=== PATIENT | female | born 1945 | race Caucasian/White ===

== ENCOUNTER 2017-08-22 15:29 | Emergency (ER) | payer OTHER ==
[~2017-08-22] VITALS: Ht 170.2 cm; Wt 90.7 kg
--- NOTE | ~2017-08-22 | EKG ---
[place] [address] [facility] [place] [address] ELECTROCARDIOGRAM REPORT Name: ABEL KRUGER Edin [facility] [id number] Admission: 08/22/17 Attend Phys: Discharge: 08/22/17 Date of : 49 Report #: [id number] THIS REPORT FOR: //name// [facility] ED Test Date: 2017-08-22 Test Time: 17:23:51 Pat Name: ABEL KRUGER Department: Room: Gender: F Account Service Associate: ROMELIA : 1945 Requested By: Barbara Sanders Order Number: [id number] MD: Kang Molina Measurements Intervals [place] Rate: 81 P: 33 WI: 172 QRS: -17 QRSD: 79 T: 22 QT: 380 QTc: 441 Interpretive Statements Sinus rhythm Atrial premature complex Left ventricular hypertrophy Inferior infarct, old Compared to ECG 09/29/2006 07:18:26 Atrial premature complex(es) now present Electronically Signed On 08-23-2017 8:06:05 CDT by Kang Molina [email or web address] <ELECTRONICALLY SIGNED> By: Kang Molina MD, [facility] 08/23/17 0806 [id number] 22 Kang Molina MD, [facility] /EPI
[2017-08-22 15:49] LABS: URINE BILIRUBIN NEGATIVE (Negative); URINE BLOOD TRACE (Negative); URINE CLARITY CLEAR; URINE COLOR YELLOW; URINE GLUCOSE-RANDOM* 1+ (Negative); URINE KETONES NEGATIVE (Negative); URINE LEUKOCYTES NEGATIVE (Negative); URINE NITRITE NEGATIVE (Negative); URINE PROTEIN (DIPSTICK) NEGATIVE (Negative)
[2017-08-22 16:14] LABS: HEMATOCRIT 41.7 % (37.0-47.0); HEMOGLOBIN 13.9 gm/dL (12.0-15.0); MCH 27.4 pg (26.0-34.0); MCHC 33.4 g/dL (28.0-37.0); PLATELET COUNT 123 thou/uL (150-400); RBC 5.08 mil/uL (4.20-5.00); RDW 14.7 % (10.5-14.5)
[2017-08-22 16:22] LABS: ANION GAP 9 mmol/L (7-16); BUN 9 mg/dL (7-18); CALCIUM 9.6 mg/dL (8.5-10.1); CHLORIDE 102 mmol/L (98-107); CO2 24 mmol/L (21-32); CREATININE 0.7 mg/dL (0.6-1.0); GLUCOSE 175 mg/dL (74-106); POTASSIUM 4.4 mmol/L (3.5-5.1); SODIUM 135 mmol/L (136-145)
[2017-08-22 16:30] LABS: ALBUMIN 3.4 g/dL (3.4-5.0); LIPASE 231 U/L (73-393); SGOT 43 U/L (15-37); SGPT 47 U/L (30-65); TOTAL BILIRUBIN 0.6 mg/dL (<0.1-1.0); TOTAL PROTEIN 7.2 g/dL (6.4-8.2); TROPONIN-I < 0.04 ng/mL (<0.06)
[2017-08-22 16:40] LABS: ABSOLUTE NEUTROPHILS 2.7 thou/uL (1.4-8.2); ANISOCYTOSIS 1+; POLYCHROMASIA OCCASIONAL
[2017-08-22] MEDS ORDERED: ONDANSETRON HCL4 M2 PO (18:42)
[2017-08-22 19:03] VITALS: BP 173/79
[2017-08-23] MEDS ORDERED: EFFEXOR XR150 MG PO (17:13)
[2017-08-23] MEDS ORDERED: METFORMIN HCL500 MG PO (17:14)
[2017-08-23] MEDS ORDERED: OMEPRAZOLE40 MG PO (17:14)
[2017-08-23] MEDS ORDERED: VALIUM5 MG PO (17:15)
[2017-08-23] MEDS ORDERED: ALLEGRA ALLERG180 MG PO (17:15)
[2017-08-23] MEDS ORDERED: ACETAMINOPHEN-1 EAC1 PO (17:15)
[2017-08-23] MEDS ORDERED: MILK OF MA400 MG/5 M PO (17:17)
== END 2017-08-22 19:03 | disposition home or self-care (01) ==
LOC: ER 15:29
PROVIDERS: Physician Assistant
DX: R55 Syncope and collapse (principal); R19.7 Diarrhea, unspecified; R11.2 Nausea with vomiting, unspecified; M79.7 Fibromyalgia; Z98.890 Other specified postprocedural states; Z88.0 Allergy status to penicillin; Z88.1 Allergy status to other antibiotic agents

== ENCOUNTER 2017-08-23 16:55 | Observation (INO) | payer OTHER ==
[~2017-08-23] VITALS: Ht 180.3 cm; Wt 83.9 kg
--- NOTE | ~2017-08-23 | H ---
[facility] [place] [address] [address] HISTORY AND PHYSICAL Name: ABEL KRUGER Room #: 407-P MINH Garcia#: [id number] Admission: 08/23/17 Attend Phys: Tara Mcknight Discharge: 08/24/17 Date of : 49 Report #: [id number] THIS REPORT FOR: //name// CC: Wilman Churchill DATE OF SERVICE: 08/23/2017 CHIEF COMPLAINT: Diarrhea and weakness. HISTORY OF PRESENT ILLNESS: The patient is a 72-year-old female with a recent history of flu-like illness. She has had nausea, diarrhea, weakness and dizziness for the last several days. She was seen in the office 2 days ago and then directed to ER. There workup was unremarkable and she received IV fluids with improvement of her symptoms and was discharged home. However, that night, diarrhea persisted and she was seen in the office again yesterday. Due to persistent symptoms, she was admitted to the hospital. Overnight, she has been placed on clear liquid diet and IV fluids, which have improved her symptoms and she has had no diarrhea she says now for about 24 hours. PAST MEDICAL HISTORY: Fibromyalgia, anxiety and diabetes type 2. PAST SURGICAL HISTORY: Noncontributory. FAMILY HISTORY: Unknown. SOCIAL HISTORY: She is and lives with her . No chronic alcohol or tobacco use. ALLERGIES: PENICILLIN AND TETRACYCLINE. MEDICATIONS: Nathalia, Tylenol No. 3, Effexor, Valium, Prilosec and metformin. REVIEW OF SYSTEMS: She denies headache, chest pain, shortness of breath, abdominal pain, cramps, bleeding, myalgias, arthralgias, syncope or fall. PHYSICAL EXAMINATION: VITAL SIGNS: Temperature 36.4, pulse 86, respirations 18 and blood pressure 156/69. GENERAL: She is awake and alert, in no distress. LUNGS: Clear. HEART: Regular. ABDOMEN: Soft. Normoactive bowel sounds. EXTREMITIES: No edema. LABORATORY DATA: Lab is normal from 2 days ago. Chest x-ray was negative and CT was negative. [facility] [place] [address] HISTORY AND PHYSICAL Name: ABEL KRUGER Room #: 407-P [facility] MRohanRohan#: [id number] Admission: 08/23/17 Attend Phys: Tara Mcknight Discharge: 08/24/17 Date of : 49 Report #: [id number] ASSESSMENT: Acute gastroenteritis. PLAN: I will advance her diet today and if she can tolerate without any more diarrhea, we will anticipate early discharge home. <ELECTRONICALLY SIGNED> By: Mello Powell MD 08/29/17 0948 0946 1003 Mello Powell MD /nt
[~2017-08-23 16:55] MED LIST: ONDANSETRON HCL4 M2 PO
[2017-08-23] MEDS ORDERED: EFFEXOR XR150 MG PO (17:13)
[2017-08-23] MEDS ORDERED: OMEPRAZOLE40 MG PO (17:14)
[2017-08-23] MEDS ORDERED: METFORMIN HCL500 MG PO (17:14)
[2017-08-23] MEDS ORDERED: ALLEGRA ALLERG180 MG PO (17:15)
[2017-08-23] MEDS ORDERED: ACETAMINOPHEN-1 EAC1 PO (17:15)
[2017-08-23] MEDS ORDERED: VALIUM5 MG PO (17:15)
[2017-08-23] MEDS ORDERED: MILK OF MA400 MG/5 M PO (17:17)
[2017-08-23 17:30] VITALS: BP 149/86
[2017-08-23 19:37] LABS: HEMATOCRIT 40.1 % (37.0-47.0); HEMOGLOBIN 13.7 gm/dL (12.0-15.0); MCH 27.9 pg (26.0-34.0); MCHC 34.1 g/dL (28.0-37.0); RBC 4.89 mil/uL (4.20-5.00); RDW 14.5 % (10.5-14.5); WBC 5.9 thou/uL (4.0-11.0)
[2017-08-23 19:51] LABS: CALCIUM 10.1 mg/dL (8.5-10.1); CREATININE 0.7 mg/dL (0.6-1.0); POTASSIUM 3.7 mmol/L (3.5-5.1)
[2017-08-23 20:07] VITALS: BP 155/82
[2017-08-24 04:00] VITALS: BP 154/72
[2017-08-24 07:20] VITALS: BP 156/69
[2017-08-24 13:20] VITALS: BP 156/69
== END 2017-08-24 15:24 | disposition home or self-care (01) ==
LOC: 4N 16:55 → ENTRNSPT 08-24 14:48 → EDTRNSPTSTS 08-24 15:15 → 4N 08-24 15:24
PROVIDERS: Internal Medicine
DX: K52.9 Noninfective gastroenteritis and colitis, unspecified (principal); E11.9 Type 2 diabetes mellitus without complications; F41.9 Anxiety disorder, unspecified
CPT/HCPCS: 10790

== ENCOUNTER 2018-02-15 15:27 | Inpatient (IN) | payer OTHER ==
[~2018-02-15] VITALS: Ht 180.3 cm; Wt 83.0 kg
--- NOTE | ~2018-02-15 | PATH ---
[facility] [place] [address] PATHOLOGY RPT PROCEDURE Name: EUGENIA VANG Room #: 459-P [facility] IN M.R.#: [id number] Admission: 02/15/18 Date of : 49 Discharge: 02/17/18 Report #: [id number] Path Case #: [id number] [facility] Accession Number: [id number] . 01 Material submitted: . PART A: GALLBLADDER PART B: LIVER BIOPSY . 01 Clinical history: . Cholecystitis, cholelithiasis . 02 Diagnosis: A. Gallbladder, cholecystectomy: - Acute cholecystitis with focal ulceration. - Cholelithiasis. - Cholesterol polyp. . B. Liver, needle core biopsy: - Moderate mixed portal/septal chronic inflammation admixed with eosinophils (Grade 2-3/4). - Steatohepatitis, NAFLD Activity Score of 6/8 (70% steatosis = score of 3, 2-4 foci of lobular inflammation - score of 2, mild ballooning present = score of 1). - Extensive bridging fibrosis and nodule formation (Stage 3-4/4). (IUV:michelle; 02/20/2018) QMS/02/20/2018 . 02 Comment: Examination shows marked mixed macro- and microvesicular steatosis. Perisinusoidal fibrosis as well as ballooned hepatocytes and scattered foci of lobular inflammation are present. Features are compatible with steatohepatitis. Satellitosis is not present. Abundant glycogenated nuclei are identified. . In addition, the portal tracts/septae are expanded by a moderate amount of mixed chronic inflammatory infiltrate comprised of lymphocytes, abundant plasma cells as well as a few eosinophils. Ductular proliferation is prominent and identified. Many ducts show acute inflammation, compatible with cholangitis (history of obstruction is noted). Hepatocyte rosettes are not identified.Florid duct lesions or sclerosing bile duct lesions are not present. . Trichrome special stain shows the markedly expanded septae, extensive periportal fibrosis, bridging fibrosis and nodule formation. Reticulin stain is distorted by steatosis and shows the same. The PAS with and without diastase are negative for intracytoplasmic globules in zone 1 and show numerous Kupffer cell macrophages present. Iron stain shows rare 1+ [facility] [address] [place] [address] PATHOLOGY RPT PROCEDURE Name: EUGENIA VANG Room #: 459-P [facility] IN M.R.#: [id number] Admission: 02/15/18 Date of : 49 Discharge: 02/17/18 Report #: [id number] Path Case #: [id number] granular iron in zone 1 hepatocytes. . Steatohepatitis can be seen in several clinical settings including situations of insulin resistance, with alcohol use, as an adverse reaction to several medications, with hyperlipidemias, after gastric or small bowel resections, and as an idiopathic variant. In addition, the extensive portal/septal chronic inflammation with a predominance of plasma cells, as well as the ductular proliferation raises concern for autoimmune etiology, as well as drug-induced liver injury. Please correlate clinically. . Findings of this case are discussed with Dr. Hoa Irvin in the morning of 02/20/2018. . (IUV:michelle; 02/20/2018) . 02 Electronically signed: . Salena Mendiola MD, Pathologist NPI- [id number] . 01 Gross description: . A. Received in formalin labeled "Eugenia Vang, gallbladder" is a previously opened, glistening, koehler, glynn and enlarged gallbladder (9.7 x 5.0 x 3.6 cm upon reconstruction). The wall averages 0.3 cm thick. There are multifocal pseudopolyps versus polyps of the mucosa ranging in size from less than 0.1 cm-0.2 cm in greatest dimension. The wall ranges in thickness from 0.2 cm-0.4 cm. There is a possible subserosal hematoma near the fundus, 1.7 cm, estimated volume 2 cc. Also within the container is a hematoma, 3.0 cm, estimated volume 2 cc. Also within the container are several friable black calculi ranging in size from less than 0.1 cm-0.2 cm and aggregating to 1.2 x 1.0 x 0.4 cm. Present sections are submitted A1-A4, A1 contains margin. . B. Received in formalin labeled "Eugenia Vang, liver biopsy" are 2 green tissue cores each averaging 1.8 cm in length by 0.1 cm in diameter. They are entirely submitted as B1. (OLLIE; 02/19/2018) JBR/JBR . 02 Pathologist provided ICD-10: K80.00, K82.4, K75.81, K74.0, K76.9 . 02 CPT . 577231, 105681, 507733, 630317, 332124, 211405, 945747 Specimen Comment: A courtesy copy of this report has been sent to Specimen Comment: [phone], , . Specimen Comment: Report sent to ,DR FIGUEROA, / DR RODRIGUEZ Performed at: [address] [address] PATHOLOGY RPT PROCEDURE Name: EUGENIA VANG Room #: 459-P [facility] IN .R.#: [id number] Admission: 02/15/18 Date of : 49 Discharge: 02/17/18 Report #: [id number] Path Case #: [id number] [address] [id number] MD Jomar Pena MD Phone: [phone] Performed at: [address] [id number] MD Salena Mendiola MD Phone: [phone]
--- NOTE | ~2018-02-15 | O ---
[facility] [place] [address] [place] [address] OPERATIVE REPORT Name: ABEL KRUGER Room #: 459-P [facility] IN M.R.#: [id number] Admission: 02/15/18 Attend Phys: Tara Mcknight Discharge: 02/17/18 Date of : 49 Report #: [id number] THIS REPORT FOR: //name// CC: Johan Ruiz DATE OF SERVICE: 02/16/2018 PREOPERATIVE DIAGNOSES: Obstructive jaundice, resolving, likely small common duct stone passed. Cholecystitis with dilated distended gallbladder and cholelithiasis. POSTOPERATIVE DIAGNOSES: Obstructive jaundice, resolving, likely small common duct stone passed. Cholecystitis with dilated distended gallbladder and cholelithiasis. Nodular liver consistent with cirrhosis, probably steatohepatitis related. PROCEDURES PERFORMED: Laparoscopic cholecystectomy with cholangiogram. ANESTHESIA: General. SURGEON: Hao Irvin MD. PROCEDURE PERFORMED: 1. Laparoscopic cholecystectomy with cholangiogram. 2. Core 18-gauge needle biopsy of the liver. COMPLICATIONS: None. ESTIMATED BLOOD LOSS: 75 mL. DESCRIPTION OF PROCEDURE: With the patient under general anesthesia, timeout was performed. Abdomen was prepped and draped in sterile fashion. IV antibiotic was administered. Transverse incision was made above the umbilicus about 2 cm. After incising through the skin and subcutaneous tissue, fascia identified. The patient's abdominal wall was quite stretchy. The fascia was opened under visualization vertically. A 0 Vicryl suture was placed on the fascia edges. Veress needle was then placed through the peritoneum. Abdominal cavity was insufflated with CO2 easily. After creating pneumoperitoneum, an 11-mm trocar was placed into the pneumoperitoneum. No harm to underlying tissue. Evaluation of the abdomen showed the liver to be pretty nodular consistent with cirrhosis, probably steatohepatitis related. I did not see any ascites. There is no evidence of portal hypertension. The bowels appeared normal. Gallbladder was markedly distended. The gallbladder was covered by pretty dense adhesions. They were chronic. Two 5-mm trocars were placed in [address] [address] OPERATIVE REPORT Name: ABEL KRUGER Room #: 459-P [facility] IN M.R.#: [id number] Admission: 02/15/18 Attend Phys: Tara Mcknight Discharge: 02/17/18 Date of : 49 Report #: [id number] right lower quadrant and a 5-mm trocar placed in right epigastrium. Gallbladder was distended and decompressed with aspirating about 60 mL out of it. Gallbladder was then lifted cephalad. The adhesions were taken down. The gallbladder re-aspirated 60 mL because it continued to be fairly distended, particularly when we got down to the bottom of the gallbladder when the adhesions were all taken down. Peritoneum was dissected free over the cystic duct and artery. The artery was identified first. It is more superficial in location. The artery was isolated, clipped x 2 proximally and 1 distally and then divided. The cystic duct was then found. Cystic duct was actually pretty normal size. After isolating the cystic duct, a clip was placed in junction of cystic duct to the gallbladder, opening was made in the cystic duct. I milked the cystic duct, did not get anything out of it. The cholangiogram catheter was placed. Fluoroscopic cholangiogram was obtained. The common bile duct filled out well. I did not see any filling defect. The pancreatic duct was also visualized. The cholangiogram catheter was then removed. When I removed the cholangiogram catheter, small sand-like stones were visualized at the opening for the cholangiogram. These were suctioned out. The cystic duct was also irrigated. Two clips were placed on the proximal cystic duct. Cystic duct was then divided. The gallbladder was freed from the liver bed. Towards the upper part of the dissection, the liver bed was entered and this had venous bleeding like a sinusoid. I was not able to control the cautery. Surgicel was placed over this area. Pressure was held over this area. This is where the blood loss occurred at. After pressure, the hemostasis was obtained. A couple of layers of Surgicel was placed over this. Gallbladder was free rest of the way and then placed in a specimen bag. The gallbladder was retrieved through the incision above the umbilicus. I did have to open up the fascia because the gallbladder was quite thickened. Gallbladder was removed and then opened off the field and actually had multiple well-formed stones in there. They were black and up to about 1 cm in size. Gallbladder was then handed off. Liver bed was again checked, hemostasis was obtained. No bleeding from that site. A liver biopsy was then performed of the left lobe, which is located just medial to the liver bed along the edge. An 18-gauge Monopty was able to obtain 2 good cores. Specimen was placed in Telfa, put in formalin and sent to pathology. The hemostasis was obtained with pressure and a Surgicel placed over the liver. Some bleeding from this area was noted, which then stopped with pressure. No bleeding was from either sites. The patient was then taken to recovery room. <ELECTRONICALLY SIGNED> By: Hao Irvin MD 03/01/18 1047 1140 1237 Hao Irvin MD /nicole
--- NOTE | ~2018-02-15 | HC ---
[place] [address] CONSULTATION Name: ABEL KRUGER Room #: 459-P [facility] IN M.R.#: [id number] Admission: 02/15/18 Attend Phys: Tara Mcknight Discharge: 02/17/18 Date of : 49 Report #: [id number] THIS REPORT FOR: //name// CC: Johan Ruiz DATE OF SERVICE: 02/16/2018 REASON FOR CONSULTATION: Abdominal pain, nausea, vomiting, and elevated liver function tests consistent with obstructive jaundice. HISTORY OF PRESENT ILLNESS: The patient is a 72-year-old who had been a prior patient of mine in the office. The patient started on Monday with nausea and vomiting. She also did have pain in the right upper quadrant area. The patient was seen by Dr. Johan Churchill yesterday, admitted, her liver enzymes showed a bilirubin of 4. Ultrasound was reported to me that it did not show any stone. The patient's duct was not remarkable. The patient is admitted for evaluation and treatment. The patient did undergo an MRCP this morning. I looked at the MRCP and then reviewed with Dr. Holland. The gallbladder contains layering small stone debris. Also, the common duct did not have any evidence of a stone in it. We also reviewed a CT scan from August. This contained what looked like stones at the bottom of the gallbladder, which is lying out, which suggests as more of small stones and like debris material. The patient was recommended to have her gallbladder removed. A liver function tests performed today did show that it dropped from 4 to 1.7. PHYSICAL EXAMINATION: She is alert and oriented. She is quite tender in the right upper quadrant. There is no abdominal mass. No ascites. IMPRESSION: The patient is a 72-year-old with abdominal pain, nausea and vomiting. She is complaining of dark urine for a few days. Today, it started to lighten up. Her liver function tests suggest that she passed stone. MRCP does not show any current stone in the duct. She does have a density in the gallbladder, which is layering out, probably small stone or sludge. This is seen on MRCP and also on a prior CT in August. I believe she likely passed a stone through the duct and her obstructive jaundice is resolving, but she still is quite tender in the gallbladder area. Recommend the patient have surgery. Procedure discussed in detail. Risk of bleeding, infection, bile duct injury discussed. The patient will receive preoperative IV antibiotic. The patient wishes to proceed. was present. Her also recognized me and knows me. <ELECTRONICALLY SIGNED> By: Hao Irvin MD 03/01/18 1047 1146 1449 Hao Irvin MD /nt
--- NOTE | ~2018-02-15 | H ---
[facility] [place] [address] HISTORY AND PHYSICAL Name: ABEL KRUGER Room #: 459-P ADM IN M.R.#: [id number] Admission: 02/15/18 Attend Phys: Tara Mcknight Discharge: Date of : 49 Report #: [id number] THIS REPORT FOR: //name// CC: Wilman Littlejohnfer Sara DATE OF SERVICE: 02/15/2018 CHIEF COMPLAINT: Abdominal pain. HISTORY OF PRESENT ILLNESS: The patient is a 72-year-old female who was admitted from home for evaluation of abdominal pain. She has had issues with discomfort and some nausea for several days. She had some outpatient labs, which revealed elevated bilirubin. She had some outside radiology studies suggesting cholecystitis. She is admitted for evaluation. MRCP is revealing a large thickened gallbladder. I have discussed the situation with Dr. Irvin and it appears working diagnosis is acute cholecystitis with surgical plans and laparoscopic cholecystectomy later today. PAST MEDICAL HISTORY: Fibromyalgia. She uses Tylenol No. 3, chronic allergic rhinitis, diabetes type 2. PAST SURGICAL HISTORY: Noncontributory. FAMILY HISTORY: Noncontributory. SOCIAL HISTORY: No alcohol or tobacco use. She is and lives with her . ALLERGIES: PENICILLIN, TETRACYCLINE. MEDICATIONS: Nathalia, Tylenol with Codeine, Valium, venlafaxine. REVIEW OF SYSTEMS: She denies headache, chest pain, shortness of breath, diarrhea, constipation, dysuria, syncope. OBJECTIVE: VITAL SIGNS: Temperature 36.6, pulse 73, respirations 16, blood pressure 170/71, O2 sat 95% on room air. GENERAL: She is awake, alert, in no distress. LUNGS: Clear. HEART: Regular. ABDOMEN: Protuberant, soft, normoactive bowel sounds. No rebound or guarding. EXTREMITIES: No edema. NEUROLOGIC: Cranial nerves and orientation intact. [facility] [address] [place] [address] HISTORY AND PHYSICAL Name: ABEL KRUGER Room #: 459-P [facility] IN [facility]#: [id number] Admission: 02/15/18 Attend Phys: Tara Mcknight Discharge: Date of : 49 Report #: [id number] ASSESSMENT: Acute cholecystitis. PLAN: As mentioned, Dr. Irvin has surgical plans for later today. <ELECTRONICALLY SIGNED> By: Mello Powell MD 02/16/18 1255 1142 1155 Mello Powell MD /nt
[~2018-02-15 15:27] MED LIST changes: +ACETAMINOPHEN-1 EAC1 PO; +ALLEGRA ALLERG180 MG PO; +EFFEXOR XR150 MG PO; +METFORMIN HCL500 MG PO; +MILK OF MA400 MG/5 M PO; +OMEPRAZOLE40 MG PO; +VALIUM5 MG PO
[2018-02-15 17:24] VITALS: BP 142/69
[2018-02-15 19:22] VITALS: BP 167/87
[2018-02-16] VITALS (8 sets, daily range): BP systolic 116–187; BP diastolic 52–97
[2018-02-16 11:02] LABS: HEMOGLOBIN 13.1 gm/dL (12.0-15.0); MCH 28.7 pg (26.0-34.0); MCHC 34.5 g/dL (28.0-37.0); MCV 83.4 fL (80.0-100.0); RBC 4.56 mil/uL (4.20-5.00); RDW 14.3 % (10.5-14.5); WBC 3.5 thou/uL (4.0-11.0)
[2018-02-16 11:16] LABS: ALBUMIN 3.1 g/dL (3.4-5.0); CALCIUM 10.6 mg/dL (8.5-10.1); CREATININE 0.8 mg/dL (0.6-1.0); POTASSIUM 4.4 mmol/L (3.5-5.1); TOTAL BILIRUBIN 1.8 mg/dL (<0.1-1.0)
[2018-02-17 03:30] VITALS: BP 157/81
[2018-02-17 05:11] LABS: ALBUMIN 2.8 g/dL (3.4-5.0); DIRECT BILIRUBIN 0.5 mg/dL (<0.1-0.3); TOTAL BILIRUBIN 1.5 mg/dL (<0.1-1.0); TOTAL PROTEIN 6.7 g/dL (6.4-8.2)
[2018-02-17 07:58] VITALS: BP 175/74
[2018-02-17 12:29] VITALS: BP 175/74
== END 2018-02-17 13:10 | disposition home or self-care (01) | DRG 419 ==
LOC: 4W 15:27
PROVIDERS: Surgery
PROC: BF121ZZ Fluoroscopy of Gallbladder using Low Osmolar Contrast (ICD-10-PCS; principal; 2018-02-16)
PROC: 0FB23ZX Excision of Left Lobe Liver, Percutaneous Approach, Diagnostic (ICD-10-PCS; principal; 2018-02-16)
PROC: 0FT44ZZ Resection of Gallbladder, Percutaneous Endoscopic Approach (ICD-10-PCS; principal; 2018-02-16)
DX: K80.01 Calculus of gallbladder with acute cholecystitis with obstruction (principal); K74.60 Unspecified cirrhosis of liver; E11.9 Type 2 diabetes mellitus without complications; Z88.1 Allergy status to other antibiotic agents; Z88.0 Allergy status to penicillin; Z79.899 Other long term (current) drug therapy
CPT/HCPCS: 10047; 50010; 50101; 50411; 50555; 50558; 51489; 53307; 53310; 53312; 55245; 55317; 56462; 56525; 56526; 56638; 56639; 56970; 62110; 62900; 70005

== ENCOUNTER 2019-05-27 12:07 | Inpatient (IN) | payer OTHER ==
[~2019-05-27] VITALS: Ht 177.8 cm; Wt 79.4 kg
--- NOTE | ~2019-05-27 | HC ---
[facility] [place] [address] CONSULTATION Name: ABEL KRUGER Room #: 453-P [facility] M..#: [id number] Admission: 05/27/19 Attend Phys: Tara Mcknight Discharge: Date of : 49 Report #: [id number] THIS REPORT FOR: //name// CC: Wilman Churchill DATE OF SERVICE: 05/28/2019 HISTORY OF PRESENT ILLNESS: This is a 73-year-old female patient who was seen by me this afternoon and then again this evening. Neurology consultation was requested because the patient noticed that she was not able to express herself as good as she has done before. She said she is feeling somewhat better. There was some question of drooling from the right. She has improved, but not returned back to the baseline. She never had any stroke before. REVIEW OF SYSTEMS: Positive for fibromyalgia, degenerative joint disease, irritable bowel syndrome, neuropathy, chronic fatigue syndrome, restless leg, bursitis, tonsillectomy, chronic pain syndrome, but is negative for any stroke. This was a relevant 14-point review of system. PAST MEDICAL HISTORY: Negative for stroke. FAMILY HISTORY: Negative for early age stroke. SOCIAL HISTORY: She has a pretty supportive family and I talked to them morning as well as this evening. PHYSICAL EXAMINATION: Indicates she is alert, responsive, able to follow simple and complex command. Her speech does look intact. She thinks she has to bring the words out. 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 Neuromuscular examination does indicate weakness on the right side. Position sense looks intact. No cerebellar sign. No carotid bruit. IMAGING STUDIES: Her extensive imagings were reviewed. She does have a stroke on MRI and she has intracranial stenosis. Her blood pressure is somewhat high and we need to keep it somewhat high. LABORATORY DATA: Indicate the blood sugar was high at 260, but coming down to 147. IMPRESSION: 1. Cerebrovascular accident. 2. Intracranial stenosis. 3. High blood sugar. 4. Hypertension, but we need to keep the blood pressure somewhat high. RECOMMENDATIONS: [facility] [address] [place] [address] CONSULTATION Name: ABEL KRUGER Room #: 453-P [facility] Josiane Garcia#: [id number] Admission: 05/27/19 Attend Phys: Tara Mcknight Discharge: Date of : 49 Report #: [id number] 1. Dual antiplatelet therapy with aspirin and Plavix. 2. I discussed with the family that the deficit can fluctuate. 3. I will suggest keeping the blood pressure somewhat high. I will like to keep it around 150 systolic, like it is going and not lower it. 4. This patient should go to rehab, but she refuses that. She has already been evaluated by rehab. 5. Her LDL is only 51, but she does have a lot of other problems and I think some basic collagen vascular workup will be desirable. 6. As an outpatient, she should have 30 days event monitor. I discussed with the patient and the family twice and about 50 minutes of time was spent taking care of this patient and majority counseling and coordinating. By: 1839 0000 Keegan Fu MD /nt
--- NOTE | 2019-05-27 12:12 | NUR ---
PT. TO CT SCAN AT THIS TIME. VS TO BE OBTAINED.
[2019-05-27] MEDS ORDERED: LIPITOR10 MG PO (12:59)
[2019-05-27 13:10] LABS: ABSOLUTE NEUTROPHILS 5.5 thou/uL (1.4-8.2); BASOPHILS 0.8 % (0.0-2.0); EOSINOPHILS 0.3 % (0.0-3.0); HEMATOCRIT 47.2 % (37.0-47.0); HEMOGLOBIN 15.7 gm/dL (12.0-15.0); LYMPHOCYTES 13.2 % (24.0-44.0); MCH 28.5 pg (26.0-34.0); MCHC 33.4 g/dL (28.0-37.0); MCV 85.4 fL (80.0-100.0); MONOCYTES 7.2 % (1.0-8.0); PLATELET COUNT 162 thou/uL (150-400); POLYS 78.5 % (36.0-66.0); RBC 5.52 mil/uL (4.20-5.00); RDW 13.9 % (10.5-14.5); WBC 7.1 thou/uL (4.0-11.0)
[2019-05-27 13:13] LABS: CALCIUM 11.3 mg/dL (8.5-10.1); CREATININE 0.7 mg/dL (0.6-1.0); POTASSIUM 4.2 mmol/L (3.5-5.1)
[2019-05-27 13:19] LABS: ALBUMIN 4.2 g/dL (3.4-5.0); DIRECT BILIRUBIN 0.1 mg/dL (<0.1-0.2); TOTAL BILIRUBIN 0.6 mg/dL (<0.1-1.0); TOTAL PROTEIN 8.9 g/dL (6.4-8.2)
[2019-05-27 13:33] LABS: URINE BILIRUBIN NEGATIVE (Negative); URINE BLOOD TRACE (Negative); URINE CLARITY CLEAR; URINE COLOR YELLOW; URINE GLUCOSE-RANDOM* 2+ (Negative); URINE KETONES NEGATIVE (Negative); URINE LEUKOCYTES-REFLEX NEGATIVE (Negative); URINE NITRITE-REFLEX NEGATIVE (Negative); URINE PROTEIN (DIPSTICK) NEGATIVE (Negative); URINE UROBILINOGEN 0.2 E.U./dl (0.2-1.0)
[2019-05-27 15:16] LABS: APTT 23.7 Seconds (24.5-32.8); PROTIME 10.5 Seconds (9.3-11.4)
--- NOTE | 2019-05-27 17:06 | NUR ---
[place] 4w [place] [phone]. Staff states that they need a few minutes as they just recieved the bedding assignment. THey state will call back.
[2019-05-27 17:33] VITALS: BP 157/78
[2019-05-27 18:13] VITALS: BP 181/101
[2019-05-27] MEDS ORDERED: LISINOPRIL2.5 MG PO (18:32)
--- NOTE | 2019-05-27 19:04 | NUR ---
PATIENT ARRIVED FROM ED VIA STRECHER, ALERT AND ORIENTED. PATIENT ORIENTED TO UNIT AND THE ROOM. DR CABAN NOTIFIED AND REPORT GIVEN TO JAKE Pacheco RN, TO COMPLETE THE ADMISSION.
[2019-05-28 08:40] VITALS: BP 159/96
--- NOTE | 2019-05-28 08:57 | EKG ---
[address] [address] ELECTROCARDIOGRAM REPORT Name: ABEL KRUGER Room #: 453-P [facility] M.R.#: [id number] Admission: 05/27/19 Attend Phys: Tara Mcknight Discharge: Date of : 49 Report #: [id number] THIS REPORT FOR: //name// [facility] ED Test Date: 2019-05-27 Test Time: 14:07:56 Pat Name: ABEL KRUGER Department: Room: [facility] Gender: F Sports Announcer: : 1945 Requested By: Mari Moser Order Number: [id number] MD: Kang Molian Measurements Intervals [place] Rate: 96 P: 47 GA: 185 QRS: -11 QRSD: 87 T: 33 QT: 347 QTc: 439 Interpretive Statements Sinus tachycardia Multiple ventricular premature complexes Inferior infarct, old Compared to ECG 08/22/2017 17:23:51 Ventricular premature complex(es) now present Atrial premature complex(es) no longer present Electronically Signed On 05-28-2019 8:56:52 ORNAMENTAL PLASTER STICKER by Kang Molina [email or web address] <ELECTRONICALLY SIGNED> By: Kang Molina MD, [facility] 05/28/19 0856 1407 1407 Kang Molina MD, [facility] /EPI
[2019-05-28 09:32] LABS: CHOLESTEROL 112 mg/dL (<200); HDL CHOLESTEROL 44 mg/dL (>40); LDL CHOLESTEROL 51 mg/dL (<100); TC:HDL 2.5 Ratio (Not establshd); TRIGLYCERIDE 86 mg/dL (<150); VLDL 17 mg/dL (<40)
--- NOTE | 2019-05-28 10:34 | NUR ---
PT CARE ASSUMED AT 0700. A&Ox4. PT IS GOING FOR AN MRI TODAY. AWAITING RESULTS. PT. STANDS AT THE EDGE OF THE BED WITHOUT DIFFICULTY AND TRANSITIONS TO THE BEDSIDE COMMODE AND RECLINER. IV PATENT, FLUSHES WELL WITH NO REDNESS OR EDEMA. PT. HAD SPEECH THERAPY EVALUATION AND IS NO LONGER NPO. MECHANICAL SOFT. PT. CANNOT TAKE PILLS WILL CONSULT DR. CABAN ABOUT POSSIBLY CRUSHING MEDS. WILL ALSO DISCUSS POSSIBLE SLIDING SCALE DUE TO TWO HIGH BLOOD GLUCOSE READINGS OF 252 MIDNIGHT AND 177 THIS MORNING 0815. HYDRALAZINE PRN ON BOARD IS SYSTOLIC ABOVE 60. ON ROOM AIR. BED IN LOW POSITION, LOCKED WITH BED ALARM ON. SCD'S IN PLACE
--- NOTE | 2019-05-28 11:58 | H ---
[facility] [place] [address] [address] HISTORY AND PHYSICAL Name: ABEL KRUGER Room #: 453-P [facility] M.R.#: [id number] Admission: 05/27/19 Attend Phys: Tara Mcknight Discharge: Date of : 49 Report #: [id number] THIS REPORT FOR: //name// CC: Wilman Churchill CHIEF COMPLAINT: Facial droop and trouble speaking. HISTORY OF PRESENT ILLNESS: The patient is a 73-year-old female admitted through the Emergency Room with new onset of right-sided facial droop with trouble speaking. The story began when she awoke around 2:00 a.m. on the day of admission to go to the bathroom and her noted that she was having trouble finding words. She could not remember her dog's name and/or enunciate. She went back to sleep and then awoke normally in the morning. She had some drooling from the right side of her mouth and some right-sided facial droop. She then presented to the Emergency Room around noon and was admitted with slurred speech. Initial CT of the head was unremarkable, but an MRI today is confirmed a subacute stroke. PAST MEDICAL HISTORY: Hypertension, diabetes type 2, chronic fatigue syndrome, CARUSO, neuropathy, osteoarthritis, fibromyalgia, irritable bowel syndrome. PAST SURGICAL HISTORY: None. FAMILY HISTORY: Noncontributory. SOCIAL HISTORY: No chronic alcohol or tobacco use. ALLERGIES: PENICILLIN and TETRACYCLINE. MEDICATIONS: Effexor XR, omeprazole, Tylenol No. 3, Nathalia, Glucophage, Lipitor. REVIEW OF SYSTEMS: She denies headache, chest pain, visual change, shortness of breath, abdominal pain, nausea, vomiting, diarrhea, constipation, dysuria, syncope. OBJECTIVE: VITAL SIGNS: Temperature 36.7, pulse 98, respirations 18, blood pressure 159/96, O2 sat 90% on room air. GENERAL: She was awake and alert, oriented, in no distress. HEAD AND NECK: She had very faint right-sided facial droop; however, she had slurred speech. LUNGS: Clear. HEART: Regular. ABDOMEN: Soft, normoactive bowel sounds. EXTREMITIES: No edema. NEUROLOGIC: Global strength 5/5 and equal bilaterally throughout. [address] [address] HISTORY AND PHYSICAL Name: SLICKABEL Room #: [facility] M.R.#: [id number] Admission: 05/27/19 Attend Phys: Tara Mcknight Discharge: Date of : 49 Report #: [id number] LABORATORY DATA: Reviewed. IMAGING: MRI of the head reveals a 1.5 cm acute focal infarct of the left westbrook radiata. ASSESSMENT: 1. Acute cerebrovascular accident. 2. Hypertension. 3. Diabetes type 2. 4. Nonalcoholic steatohepatitis. PLAN: She presented well beyond the window for thrombolytics yesterday and at this point, she will just be treated medically. Additional antihypertensive regimen will be ordered along with aspirin therapies, neurologic and rehab evaluations. <ELECTRONICALLY SIGNED> By: Mello Powell MD 05/28/19 1158 1122 1133 Mello Powell MD /nt
--- NOTE | 2019-05-28 14:09 | NUR ---
PT ADMITTED RELATED TO SLURRED SPEECH, BLURRY VISION. CM REVIEWED CHART AND SPOKE WITH CARE TEAM. CM MET WITH PT, SON, AND SPOUSE AT BEDSIDE THIS DAY. PT IS A&O X4. CM ROLE INTRODUCED PT INDICATED SHE LIVES IN A HOUSE WITH HER SPOUSE AND TWO DOGS WITH A RAMP TO ENTER AND NO STEPS THAT SHE NEEDS TO USE INSIDE. 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 PT INDICATED NO DME OR HH HX. PT INDICATED SHE HOPES TO RETURN HOME ONCE MEDICALLY STABLE. PT'S FAMILY INDICATED THAT THEY ARE RECEPTIVE TO ANY RECOMMENDATIONS THAT CARE TEAM MAKE FOR POST ACUTE CARE NEEDS. CM TO FOLLOW INDICATED WITH DC PLANNING.
[2019-05-28 16:12] VITALS: BP 161/71
--- NOTE | 2019-05-28 18:17 | NUR ---
pt care assumed at 1745. A&oX4/ pt. INDEPENDENT. PT AWAITING MRI OF THE ABDOMEN TOMORROW WITH POSSIBLE PENDING DISCHARGE. MIDLINE PATENT WITH NO EDEMA OR REDNESS WITH FLUIDS RUNNING. DRAINS IN PLACE PATENT. FLUSH QS WITH A 10CC FLUSH. VITALS STABLE. BED IN LOW POSITION, LOCKED. CALL LIGHT IN REACH. ANTIBIOTICS IN IV BIN.
[2019-05-28 19:09] VITALS: BP 166/69
[2019-05-29 00:21] VITALS: BP 168/74
--- NOTE | 2019-05-29 00:21 | NUR ---
PT C/O OF NOT BEING ABLE TO SPEAK AND FEELING IF THE RIGHT SIDE OF HER MOUTH IS DROOPING MORE. ALERT AND ORIENTED, SPEECH SLURRED BUT STILL UNDERSTANDABLE.
--- NOTE | 2019-05-29 00:28 | NUR ---
RETURN CALL FROM DR. PRICE REGARDING PATIENT FEELING IF HER DROOP AND SPEECH WAS WORSE. NO NEW ORDERS OBTAINED JUST ADVISED TO CONTINUE TO MONITOR.
--- NOTE | 2019-05-29 04:46 | NUR ---
progress Pt a/o x4 vss, bp elevated 168/66, 5 mg hydralazine given ivp with effect. Pt reports pain to back and both legs d/t fibromyalgia, taking tylenol #3 with effect, took 2 doses this shift. Up with 1 gb and walker ambulating to br attempting to void with little to no success. Bladder distended and full. Bladder scan revealed 435ml's, straight cath with return of 450 ml's. Pt stated she felt much better after. States she is having difficulty swallowing thin liquids, and is afraid shes going to get dehydrated. encouraged her to keep drinking. Advised to drink slowly, and to take small sips and do not use straws.
--- NOTE | 2019-05-29 06:01 | NUR ---
pt still having difficulty urinating contacted prn straight cath order obtained if over 450 ml's.
[2019-05-29 06:42] LABS: TSH 1.335 uIU/mL (0.358-3.740)
[2019-05-29 07:13] VITALS: BP 188/78
--- NOTE | 2019-05-29 09:35 | NUR ---
SPOKE WITH DR CABAN FOR CLARIFICATION OF ORDERS FOR SWALLOW EVALUATION. HE GAVE VERBAL ORDERS FOR VIDEO SWALLOW EVALUATION.
--- NOTE | 2019-05-29 10:30 | 2DMMODE ---
[facility] [address] [place] [address] 2 D/M-MODE ECHOCARDIOGRAM Name: ABEL KRUGER Room #: 453-P ADM IN M.R.#: [id number] Admission: 05/27/19 Attend Phys: Wilman Wilson Discharge: Date of : 49 Report #: [id number] THIS REPORT FOR: //name// APPROVED REPORT Study performed: 05/29/2019 09:15:51 EXAM: Comprehensive 2D, Doppler, and color-flow Echocardiogram Patient Location: Echo lab Room #: [facility] Status: routine BSA: 1.97 HR: 93 bpm BP: 188/78 mmHg Rhythm: NSR Other Information Study Quality: Good Indications CVA/TIA Diabetes Hypertension/HDD Echo Enhancing Agent Indication: Rule out Shunt Agent(s) / Amount(s) Used: Agitated Saline 7 cc 2D Dimensions RVDd: 25.39 mm IVSd: 11.43 (7-11mm) LVOT Diam: 20.86 (18-24mm) LVDd: 35.32 mm PWd: 11.01 (7-11mm) Ascending Ao: 26.21 (22-36mm) LVDs: 23.16 (25-40mm) Aortic Root: 29.61 mm IVC: 13.00 mm Volumes Left Atrial Volume (Systole) Single Plane 4CH: 48.88 mL Single Plane 2CH: 33.51 mL LA ESV Index: 23.00 mL/m2 Aortic Valve AoV Peak Trung.: 1.32 m/s AO Peak Gr.: 6.93 mmHg LVOT Max P.47 mmHg LVOT Max V: 1.17 m/s [facility] [place] [address] 2 D/M-MODE ECHOCARDIOGRAM Name: ABEL KRUGER Room #: 453-P [facility] IN .R.#: [id number] Admission: 05/27/19 Attend Phys: Wilman Wilson Discharge: Date of : 49 Report #: [id number] [id number] Vmax: 3.03 cm2 Mitral Valve E/A Ratio: 0.6 MV Decel. Time: 388.11 ms MV E Max Trung.: 0.70 m/s MV A Trung.: 1.15 m/s MV PHT: 112.55 ms IVRT: 110.73 ms Pulmonary Valve PV Peak Trung.: 1.05 m/s PV Peak Gr.: 4.43 mmHg Pulmonary Vein P Vein S: 0.85 m/s P Vein A: 0.33 m/s P Vein D: 0.34 m/s P Vein A Dur.: 87.7 msec P Vein S/D Ratio: 2.50 Tricuspid Valve TR Peak Trung.: 2.52 m/s TR Peak Gr.: 25.33 mmHg PA Pressure: 30.00 mmHg Left Ventricle The left ventricle is normal size. There is normal LV segmental wall motion. There is normal left ventricular wall thickness. Left ventricular systolic function is hyperdynamic. LVEF is 70%. Grade I - abnormal relaxation pattern. Right Ventricle The right ventricle is normal size. The right ventricular systolic function is normal. Atria The left atrium size is normal. Interatrial septum is intact without evidence of ASD or PFO. The right atrium size is normal. Aortic Valve The aortic valve is normal in structure. No aortic regurgitation is present. There is no aortic valvular stenosis. Mitral Valve The mitral valve is normal in structure. There is no mitral valve regurgitation noted. No evidence of mitral valve stenosis. Tricuspid Valve [facility] [address] [place] [address] 2 D/M-MODE ECHOCARDIOGRAM Name: ABEL KRUGER Room #: 453-P [facility] IN .R.#: [id number] Admission: 05/27/19 Attend Phys: Wilman Wilson Discharge: Date of : 49 Report #: [id number] The tricuspid valve is normal in structure. There is trace tricuspid regurgitation. Estimated PAP 30 mmHg. There is no pulmonary hypertension. Pulmonic Valve The pulmonary valve is normal in structure. There is no pulmonic valvular regurgitation. Great Vessels The aortic root is normal in size. IVC is normal in size and collapses >50% with inspiration. Pericardium There is no pericardial effusion. <Conclusion> The left ventricle is normal size. There is normal left ventricular wall thickness. Left ventricular systolic function is hyperdynamic. Grade I - abnormal relaxation pattern. The right ventricle is normal size. The left atrium size is normal. Interatrial septum is intact without evidence of ASD or PFO. The aortic valve is normal in structure. There is no mitral valve regurgitation noted. There is trace tricuspid regurgitation. Estimated PAP 30 mmHg. <ELECTRONICALLY SIGNED> By: Hilton Sears MD 05/29/19 1030 1030 1030 Hilton Sears MD /INF
--- NOTE | 2019-05-29 13:29 | NUR ---
PT A&OX4. IV INTACT IN L HAND. AMBULATES WITH STANDBY ASSIST X1 AND WALKER. FACIAL DROOP NOTED. HAVING SWALLOWING DIFFICULTY. PUREED DIET ORDRERD. TOLERATING HIN LIQUIDS W/O A STRAW. SPOUSE AT THE BEDSIDE. BED ALARM ON, CALL LIGHT W/I REACH. WILL CONT POC.
--- NOTE | 2019-05-29 13:45 | NUR ---
JUAQUIN FOLLOWED UP WITH PT AND SPOUSE AT BEDSIDE THIS DAY. HE INDICATED THAT PT IS NOW RECEPTIVE TO POST ACUTE CARE STAY AND WOULD LIKE TO GO TO [facility]. CM NOTIFIED [facility] LIASION AND ASKED THAT SHE SUBMIT FOR AUTH. THEY WOULD LIKE LIAISON TO VISIT TO PROVIDE INFO ON UNIT. CM TO FOLLOW INDICATED WITH DC PLANNING.
[2019-05-29 15:18] VITALS: BP 154/52
[2019-05-29 19:38] VITALS: BP 183/89
[2019-05-29 19:40] VITALS: BP 156/83
[2019-05-29 23:57] VITALS: BP 156/86
--- NOTE | 2019-05-30 05:49 | NUR ---
ASSUMED CARE AROUND 1930. AXOX4. SLIGHT FACIAL DROOP NOTED ON R SIDE OF FACE. CHRONIC BLE PAIN MANAGED PER MD ORDER. NO S/S ACUTE DISTRESS NOTED OR REPORTED AT THIS TIME. WILL CONT TO MONITOR FOR ANY CHANGES IN CONDITION.
[2019-05-30 07:12] VITALS: BP 168/84
[2019-05-30] MEDS ORDERED: CLARITIN10 MG PO (10:13)
[2019-05-30] MEDS ORDERED: NICOTINE TRANSD14 M1 TRANSDERM (10:14)
[2019-05-30] MEDS ORDERED: CLOPIDOGREL75 MG PO (10:14)
[2019-05-30] MEDS ORDERED: METOPROLOL SUCC25 M1 PO (10:14)
[2019-05-30] MEDS ORDERED: ADULT LOW DOSE81 MG PO (10:14)
--- NOTE | 2019-05-30 14:36 | NUR ---
AWAITING AUTH FOR [facility] ACUTE INPATIENT REHAB. CM FOLLOWING INDICATED WITH DC PLANNING.
[2019-05-30 15:07] VITALS: BP 138/67
--- NOTE | 2019-05-30 16:33 | NUR ---
PATIENT WAS VISITED BY PERSONNEL REPRESENTATIVE ON 05/29/19 AND PATIENT EXPRESSED DESIRE TO COME TO [address] [place] [address] FOR ACUTE REHAB. AUTHORIZATION REQUESTED ON 05/29/19. SPOKE WITH ALFONSO CAPITAL CAMPAIGN FUNDRAISER THIS AM WHO STATED THAT ANSWER REGARDING AUTHORIZATION COULD BE EXPECTED THIS DATE (05/30/19), BUT AT THIS POINT NO ANSWER RECEIVED FROM INSURANCE. WILL AWAIT RESPONSE AND IF AUTHORIZATION IS RECEIVED, WILL ADMIT PATIENT TO 05/31/19.
--- NOTE | 2019-05-30 19:16 | NUR ---
Assumed pt care at 7am.Assessment completed.vss.Pt c/o generalized pain rated 5/10.Pain med given as ordered and well tolerated.Pt ambulated in hallways with therapist today.Good endurance noted.Pt still waiting for approval for transfer to rehab.Later this evening,pt transfered to sr suites in stable condition.
--- NOTE | 2019-05-30 19:42 | NUR ---
PATIENT TRANSFERRED FROM [facility], REPORT RECEIVED FROM BRYN/WALLACE. PATIENT ALERT AND ORIENTED X 4. UP AD SAVITA, PATIENT WILL BE GOING TO [facility], WAITING ON INSURANCE AUTH. WILL CONTINUE TO MONITOR.
[2019-05-30 21:05] VITALS: BP 140/75
--- NOTE | 2019-05-31 05:48 | NUR ---
PATIENT ALERT AND ORIENTED X4. UP AD SAVITA. MEDS CRUSHED AND PUT IN APPLESAUCE. ACCUCHECK WAS 130, NO INSULIN COVERACE. PATIENT ANXIOUS ABOUT GOING TO REHAB. WANTS TO BE HOME FOR JEREMIAH. C/O PAIN X1. MED GIVEN. SLEPT MOST OF THE NIGHT.
[2019-05-31 07:44] VITALS: BP 151/85
--- NOTE | 2019-05-31 08:07 | NUR ---
VICE PRESIDENT PAYER RECEIVED CALL FROM ERIKA AT [facility] THIS AM. PATIENT REQUEST FOR ACUTE REHAB AUTHORIZATION DENIED. ONLINE CONTENT COORDINATOR HAS APPROVED A SKILLED STAY. PATIENT'S CHOICE FOR RESIDENTIAL SHOULD CALL IN MAIN NUMBER AT [email or web address] AND GET PENDING AUTH# AND THEN CAN CALL ERIKA AT [phone] AND HE WILL GIVE SKILLED AUTHORIZATION TODAY. BRASS MOLDER HELPER INFORMED. THANK YOUF FOR THIS REFERRAL.
[2019-05-31 09:24] VITALS: BP 151/85
--- NOTE | 2019-05-31 09:53 | NUR ---
DISCHARGE PLANNING. POST ACUTE RECOMMENDED AT DISCHARGE. [facility] DENIED PATIENT ACUTE REHAB STAY. PATIENT REFERRAL FAXED TO [facility], [facility] LIAISON FOR POST ACUTE CARE. CALL PLACED TO [facility] TO NOTIFY. CARYN TO CHECK PATIENT BENEFITS TO SEE IF SHE IS IN NETWORK WITH [facility]. UNIT SW AWARE. FOLLOWING.
--- NOTE | 2019-05-31 10:32 | NUR ---
CM WAS NOTIFIED THIS AM THAT INSURANCE DENIED [facility]. CM FOLLOWED UP WITH PT AND SPOUSE ANT BEDSIDE TO INFORM THEM THE ASKED THAT REFERRAL BE SENT TO [facility]. [facility] IS OUT OF NETWOOK WITH PT'S PPO SENIOR PLAN. THEY ASKED THAT REFERAL BE SENT TO [facility]. REFER SENT. CM NOTIFIED LIAISON AND ADMISSIONS AT P. CM TO FOLLOW INDICATED WITH DC PLANNING.
[2019-05-31] MEDS ORDERED: APAP W/CODEINE1 TA2 PO (11:38)
[2019-05-31] MEDS ORDERED: SENNA S TABLET1 EACH PO (11:38)
--- NOTE | 2019-05-31 16:29 | NUR ---
KRYS WAS ECEIVED FOR PT O DC TO [facility] THIS DAY. CHART COPY MADE. ORDERS FAXED. PT AND SPOUSE AWARE AND AGREEABLE. [facility]ELCHA[facility]SPORT ARANGED FOR 1700. REPORT TO BE CALLED TO . NO OTHER CM INTERVENTION INDICATED. CASE CLOSED.
--- NOTE | 2019-05-31 19:53 | NUR ---
ASSUMED CARE OF PATIENT AT 0715, PATIENT ALERT AND ORIENTED X 4. PATIENT UP WITH ASSIST X 1 WITH WALKER AND GAIT BELT. PATIENT C/O PAIN WITH LOW BACK AND MIGUE. LOWER EXT. SHE RECEIVED TYLENOL#3 X 2 THIS SHIFT. PATIENT WAS WAITING ON INSURANCE AUTH. FOR SKILLED FACILITY, ABOUT 1600 RECEIVED CALL FROM JOAN/ANSELMO PICKUP AT 1800. AT BEDSIDE MOST OF THE DAY. PATIENT HAD IV IN PLACE AND REMOVED THIS AM, LEAKING AT SITE. ALL DISCHARGE PAPERWORK SENT WITH THE PATIENT, AND ALL PERSONAL BELONGINGS SENT WITH THE PATIENT.
== END 2019-05-31 16:45 | DRG 66 ==
LOC: ER 12:07 → 4W 16:40 → 4N 16:40 → 4W 16:40 → EROBS 16:40 → TBACV 17:16 → 4W 17:59 → 4N 05-30 18:57
PROVIDERS: Emergency Medicine; Internal Medicine Geriatric Medicine; Psychiatry & Neurology Neuromuscular Medicine; ADMIT Internal Medicine
DX: I63.9 Cerebral infarction, unspecified (principal); K75.81 Nonalcoholic steatohepatitis (NASH); K72.90 Hepatic failure, unspecified without coma; M79.7 Fibromyalgia; M19.90 Unspecified osteoarthritis, unspecified site; K58.9 Irritable bowel syndrome, unspecified; R53.82 Chronic fatigue, unspecified; G25.81 Restless legs syndrome; G89.4 Chronic pain syndrome; R13.10 Dysphagia, unspecified; R29.810 Facial weakness; I66.9 Occlusion and stenosis of unspecified cerebral artery; E11.65 Type 2 diabetes mellitus with hyperglycemia; I10 Essential (primary) hypertension; R47.1 Dysarthria and anarthria; Z79.84 Long term (current) use of oral hypoglycemic drugs; Z79.899 Other long term (current) drug therapy; Z88.1 Allergy status to other antibiotic agents; Z88.0 Allergy status to penicillin; E11.42 Type 2 diabetes mellitus with diabetic polyneuropathy; Z28.21 Immunization not carried out because of patient refusal
CPT/HCPCS: 10040; 10790

== ENCOUNTER 2019-07-26 16:59 | Inpatient (IN) | payer OTHER ==
[~2019-07-26] VITALS: Ht 177.8 cm; Wt 75.3 kg
--- NOTE | ~2019-07-26 | D ---
[facility] [place] [address] [place] [address] DISCHARGE SUMMARY Name: ABEL KRUGER Room #: 210-P ADM IN M.R.#: [id number] Admission: 07/26/19 Attend Phys: Tara Mcknight Discharge: Date of : 49 Report #: [id number] THIS REPORT FOR: cc: Wilman Churchill MD,Junaid Little MD, MD ~ THIS REPORT FOR: //name// CC: Wilman Churchill DATE OF SERVICE: 07/28/2019 ATTENDING PHYSICIAN: Dr. Wilman Churchill. CHIEF COMPLAINT: Vertigo. HISTORY OF PRESENT ILLNESS: The patient is a 74-year-old lady with known history of recent cerebrovascular accident 05/2019. The patient presented with acute onset of vertigo, which had progressively gotten worse over the last 2 days. The patient was noted to have elevated blood pressure and a possible new cerebrovascular accident. 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 The patient was restarted on her blood pressure medications and the Plavix. Neurology consult was obtained and recommendations were to continue the Plavix with aspirin. The patient stated that she was feeling better and was ready for discharge on Monday. FINAL DIAGNOSES: 1. Postural vertigo. 2. Ischemic cerebrovascular accident. 3. Hypertension. 4. ____ steatohepatitis. 5. Hyperglycemia. 6. Prediabetic. 7. Seasonal allergies. DISCHARGE MEDICATIONS: Claritin 10 mg daily, Plavix 75 mg daily, atorvastatin 10 mg daily, metoprolol 25 mg daily, lisinopril 20 mg twice a day, aspirin 81 mg daily, Flonase nasal spray, metformin 500 mg daily. The patient was discharged to home and advised to follow up with Dr. Johan Churchill within a week's time to monitor her blood pressure and to increase activity as tolerated. [address] [address] DISCHARGE SUMMARY Name: ABEL KRUGER Room #: 210-P [facility] IN ..#: [id number] Admission: 07/26/19 Attend Phys: Tara Mcknight Discharge: Date of : 49 Report #: [id number] The patient to take a 2-gram salt diet. By: 2 2 Junaid Gomez MD /nt
--- NOTE | ~2019-07-26 | H ---
[facility] [place] [address] [address] HISTORY AND PHYSICAL Name: ABEL KRUGER Room #: 210-P ADM IN M.R.#: [id number] Admission: 07/26/19 Attend Phys: Tara Mcknight Discharge: Date of : 49 Report #: [id number] THIS REPORT FOR: //name// CC: Wilman Churchill DATE OF SERVICE: 07/26/2019 ATTENDING PHYSICIAN: Dr. Wilman Churchill. CHIEF COMPLAINT: Dizziness for the last 2 days. HISTORY OF PRESENT ILLNESS: The patient is a 74-year-old lady with known history of hypertension and recent stroke in 05/31/2019 with right-sided facial deficit. The patient also had difficulty chewing and swallowing. The patient reports that she started having episodes of dizziness, which got very severe in the last 2 days and she had difficulty getting up from her bed. The patient complains of having vertigo. She had a CT of the head done, which showed evidence of an old infarct in the left westbrook radiata. The neurology recommended getting a repeat MRI for which she is admitted to the hospital. This morning, she reports that lying in bed she does not have any dizziness. PAST MEDICAL HISTORY: Significant for history of the recent cerebrovascular accident 05/31/2019. Fibromyalgia, neuropathy of bilateral feet, chronic fatigue syndrome, restless legs syndrome and the patient is being prediabetic and chronic pain syndrome and liver dysfunction. ALLERGIES: She is known to be allergic to PENICILLIN, TETRACYCLINE, and ADHESIVE TAPE. MEDICATIONS: She currently on was Plavix, metoprolol, aspirin, nicotine patch, loratadine, venlafaxine, omeprazole, metformin, lisinopril, and atorvastatin. SOCIAL HISTORY: The patient is a former smoker, does not drink alcohol. REVIEW OF SYSTEMS: She denied having any headache, did complain of having some nausea, did not complain of any chest pain or breathing difficulty or any focal weakness. PHYSICAL EXAMINATION: GENERAL: Pleasant elderly lady who was resting in bed, did not appear to be in distress. She was awake, alert, oriented to place and person. VITAL SIGNS: She was afebrile with a pulse of 69 per minute and regular, respiratory rate 16, blood pressure was 150/66, oxygen saturation 93% on room air. HEENT: Skull was atraumatic. There was no pallor, no icterus. No nystagmus noted. [facility] [address] [place] [address] HISTORY AND PHYSICAL Name: ABEL KRUGER Room #: 210-P [facility].#: [id number] Admission: 07/26/19 Attend Phys: Tara Mcknight Discharge: Date of : 49 Report #: [id number] NECK: Supple. LUNGS: Clear to auscultation bilaterally with no wheezing or crackles. HEART: First and second normal. ABDOMEN: Soft, nontender, bowel sounds normally heard. EXTREMITIES: Did not reveal any edema. NEUROLOGIC: Cranial nerve examination is normal. Speech was normal. There was no cranial nerve deficits noted. There was no focal weakness noted in both upper and lower extremities. LABORATORY DATA: On admission showed urine, which was clear. White cell count of 7.3, hemoglobin 14.9, hematocrit 45 and platelet count of 139. Sodium was 138, potassium 3.9, chloride 102, bicarbonate 28, BUN of 14, creatinine of 0.8 and glucose was 124. CT of the head done, which was noncontrast CT. There was no midline shift or mass effect and there was asymmetric low attenuation, left westbrook radiata white matter change suggestive of subacute infarction. No bleeding was noted. ASSESSMENT: 1. Vertigo. 2. Possible cerebrovascular accident. 3. Hypertension. 4. Prediabetic. PLAN: To restart her blood pressure medications and the Plavix. As per neurology recommendations, get the MRI of the head done and await neurology recommendations. Monitor the patient in the hospital. By: 0905 0921 Junaid Gomez MD /nt
[~2019-07-26 16:59] MED LIST changes: +ADULT LOW DOSE81 MG PO; +APAP W/CODEINE1 TA2 PO; +CLARITIN10 MG PO; +CLOPIDOGREL75 MG PO; +LIPITOR10 MG PO; +LISINOPRIL2.5 MG PO; +METOPROLOL SUCC25 M1 PO; +NICOTINE TRANSD14 M1 TRANSDERM; +SENNA S TABLET1 EACH PO
[2019-07-26 17:00] VITALS: BP 200/89
[2019-07-26 17:38] LABS: ABSOLUTE NEUTROPHILS 4.9 thou/uL (1.4-8.2); BASOPHILS 0.8 % (0.0-2.0); EOSINOPHILS 0.7 % (0.0-3.0); HEMOGLOBIN 14.9 gm/dL (12.0-15.0); LYMPHOCYTES 21.5 % (24.0-44.0); MCH 28.5 pg (26.0-34.0); MCHC 33.2 g/dL (28.0-37.0); MCV 85.9 fL (80.0-100.0); MONOCYTES 9.1 % (1.0-8.0); PLATELET COUNT 139 thou/uL (150-400); POLYS 67.9 % (36.0-66.0); RBC 5.23 mil/uL (4.20-5.00); RDW 14.9 % (10.5-14.5); WBC 7.3 thou/uL (4.0-11.0)
[2019-07-26 17:39] LABS: ANION GAP 8 mmol/L (7-16); BUN 14 mg/dL (7-18); CALCIUM 10.4 mg/dL (8.5-10.1); CHLORIDE 102 mmol/L (98-107); CO2 28 mmol/L (21-32); CREATININE 0.8 mg/dL (0.6-1.0); GLUCOSE 124 mg/dL (74-106); POTASSIUM 3.9 mmol/L (3.5-5.1); SODIUM 138 mmol/L (136-145)
[2019-07-26 17:48] LABS: TROPONIN-I <0.06 ng/mL (<0.06)
[2019-07-26 18:03] LABS: LARGE PLATELETS RARE; PLATELET ESTIMATE DECREASED
[2019-07-26 19:15] LABS: URINE BILIRUBIN NEGATIVE (Negative); URINE BLOOD NEGATIVE (Negative); URINE CLARITY CLEAR; URINE COLOR YELLOW; URINE GLUCOSE-RANDOM* NEGATIVE (Negative); URINE KETONES NEGATIVE (Negative); URINE LEUKOCYTES-REFLEX TRACE (Negative); URINE NITRITE-REFLEX NEGATIVE (Negative); URINE PROTEIN (DIPSTICK) NEGATIVE (Negative)
[2019-07-27] VITALS: BP 171/73
[2019-07-27 03:50] VITALS: BP 150/66
--- NOTE | 2019-07-27 07:40 | NUR ---
RECEIVED REPORT FROM GIRISH ED RN.PATIENT ARRIVED TO ROOM 210 ACCOMPANIED BY HER .PATIENT A/O X 4.C/O RIGHT ANKLE PAIN.ABLE TO TAKE TYLENOL #3 IN THE ED AND ONE GIVEN THIS MORNING.MONITOR SHOWS SR.POC CONTINUED.
[2019-07-27 08:00] VITALS: BP 156/65
--- NOTE | 2019-07-27 09:02 | NUR ---
ASSUMED CARE OF PT APPROX 0715, A&0X4, SBA D/T DX, WAS FEELING DIZZY FOR TWO DAYS, MRI CALLED, TECH OUT AND WILL RETURN CALL WHEN HE KNOWS HIS ETA. TAKED TO Sarita MUSE ABOUT A DIET, WILL ENTER. NO NAUSEA AT THIS TIME. PT EDUCATED TO CALL FOR SBA. WEARS GLASSES, ASKED DOCTOR TO RESUME HOME MEDS. ALL AVAILABLE SAVE FOR TWO. ASKED PT TO BRING IN AND WE'D GET AN ORDER. SEE SEPARATE INTERVENTIONS FOR ASSESSMENTS.
[2019-07-27] MEDS ORDERED: TYLENOL WITH CO1 TA1 PO (09:05)
--- NOTE | 2019-07-27 13:40 | EKG ---
[facility] [place] [address] [address] ELECTROCARDIOGRAM REPORT Name: ABEL KRGUER Room #: 210- ADM IN M.R.#: [id number] Admission: 07/26/19 Attend Phys: Tara Mcknight Discharge: Date of : 49 Report #: [id number] THIS REPORT FOR: cc: Wilman Churchill MD, Christopher B. MD Couchonnal, Luis F. 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
[2019-07-27 15:25] VITALS: BP 139/70
[2019-07-27 20:15] VITALS: BP 140/75
[2019-07-28 04:45] VITALS: BP 153/63
[2019-07-28 07:00] VITALS: BP 146/68
[2019-07-28] MEDS ORDERED: LISINOPRIL20 MG PO (09:08)
[2019-07-28] MEDS ORDERED: CLARITIN10 M2 PO (09:08)
[2019-07-28] MEDS ORDERED: METOPROLOL SUCC25 M1 PO (09:08)
[2019-07-28] MEDS ORDERED: ATORVASTATIN CA10 MG PO (09:08)
[2019-07-28] MEDS ORDERED: CLOPIDOGREL75 MG PO (09:08)
[2019-07-28] MEDS ORDERED: METFORMIN HCL500 MG PO (09:08)
[2019-07-28] MEDS ORDERED: ADULT LOW DOSE81 MG PO (09:08)
[2019-07-28] MEDS ORDERED: FLONASE 0.05%50 MCG NASAL (09:08)
[2019-07-28 10:39] VITALS: BP 146/68
--- NOTE | 2019-07-28 11:20 | NUR ---
ASSUMED CARE AT SHIFT CHANGE, ALERT AND ORIENTED X4. SR ON THE MONITOR AND VSS. DISCHARGE AND MEDICATION INSTRUCTIONS GIVEN TO PATIENT AND SPOUSE. PATIENT DSICHARGED HOME.
[2019-07-29] MEDS ORDERED: TYLENOL WITH CO1 TA1 PO (19:59)
== END 2019-07-28 11:25 | disposition home or self-care (01) | DRG 66 ==
LOC: ER 16:59 → EROBS 19:10 → 2N 23:22
PROVIDERS: Emergency Medicine; ADMIT Internal Medicine
DX: I63.512 Cerebral infarction due to unspecified occlusion or stenosis of left middle cerebral artery (principal); M79.7 Fibromyalgia; G25.81 Restless legs syndrome; G89.4 Chronic pain syndrome; I10 Essential (primary) hypertension; G62.9 Polyneuropathy, unspecified; M19.90 Unspecified osteoarthritis, unspecified site; D32.0 Benign neoplasm of cerebral meninges; K58.9 Irritable bowel syndrome, unspecified; H81.10 Benign paroxysmal vertigo, unspecified ear; K75.81 Nonalcoholic steatohepatitis (NASH); R73.9 Hyperglycemia, unspecified; J30.2 Other seasonal allergic rhinitis; Z88.0 Allergy status to penicillin; Z88.7 Allergy status to serum and vaccine; Z91.040 Latex allergy status; Z79.899 Other long term (current) drug therapy; Z79.82 Long term (current) use of aspirin; Z79.84 Long term (current) use of oral hypoglycemic drugs; Z87.891 Personal history of nicotine dependence
CPT/HCPCS: 10081

== ENCOUNTER 2019-07-29 15:25 | Inpatient (IN) | payer OTHER ==
[~2019-07-29] VITALS: Ht 177.8 cm; Wt 76.7 kg
[~2019-07-29 15:25] MED LIST changes: +ATORVASTATIN CA10 MG PO; +CLARITIN10 M2 PO; +FLONASE 0.05%50 MCG NASAL; +LISINOPRIL20 MG PO; +TYLENOL WITH CO1 TA1 PO
[2019-07-29 15:28] VITALS: BP 183/77
[2019-07-29 16:13] LABS: URINE BILIRUBIN NEGATIVE (Negative); URINE BLOOD NEGATIVE (Negative); URINE CLARITY CLEAR; URINE COLOR YELLOW; URINE GLUCOSE-RANDOM* NEGATIVE (Negative); URINE KETONES NEGATIVE (Negative); URINE LEUKOCYTES-REFLEX NEGATIVE (Negative); URINE NITRITE-REFLEX NEGATIVE (Negative); URINE PROTEIN (DIPSTICK) NEGATIVE (Negative); URINE SPECIFIC GRAVITY 1.025 (1.005-1.035)
[2019-07-29 16:22] LABS: ABSOLUTE NEUTROPHILS 5.4 thou/uL (1.4-8.2); BASOPHILS 0.9 % (0.0-2.0); EOSINOPHILS 0.6 % (0.0-3.0); HEMATOCRIT 43.2 % (37.0-47.0); HEMOGLOBIN 14.4 gm/dL (12.0-15.0); LYMPHOCYTES 13.4 % (24.0-44.0); MCH 28.7 pg (26.0-34.0); MCHC 33.2 g/dL (28.0-37.0); MCV 86.3 fL (80.0-100.0); MONOCYTES 9.1 % (1.0-8.0); PLATELET COUNT 148 thou/uL (150-400); RBC 5.01 mil/uL (4.20-5.00); WBC 7.2 thou/uL (4.0-11.0)
[2019-07-29 16:33] LABS: ANION GAP 8 mmol/L (7-16); BUN 11 mg/dL (7-18); CALCIUM 10.1 mg/dL (8.5-10.1); CHLORIDE 101 mmol/L (98-107); CO2 27 mmol/L (21-32); CREATININE 0.8 mg/dL (0.6-1.0); GLUCOSE 166 mg/dL (74-106); POTASSIUM 3.9 mmol/L (3.5-5.1); SODIUM 136 mmol/L (136-145)
[2019-07-29 16:42] LABS: ALBUMIN 4.1 g/dL (3.4-5.0); SGOT 15 U/L (15-37); SGPT 30 U/L (30-65); TOTAL BILIRUBIN 0.6 mg/dL (<0.1-1.0); TOTAL PROTEIN 8.1 g/dL (6.4-8.2); TROPONIN-I <0.06 ng/mL (<0.06)
[2019-07-29 18:20] VITALS: BP 182/75
[2019-07-29 18:39] VITALS: BP 183/81
[2019-07-29] MEDS ORDERED: TYLENOL WITH CO1 TA1 PO (19:59)
[2019-07-29 20:46] VITALS: BP 152/79
[2019-07-30 00:09] VITALS: BP 163/84
--- NOTE | 2019-07-30 01:23 | NUR ---
PT ADMITTED FROM ED WITH NEAR SYNCOPY.ARRIVED TO UNIT VIA CART ACCOMPANIED BY THE CORNELIO.PT A/OX4.VSS.DENIES DIZZINESS.USES A WALKER TO AMBULATED.H/O OF FIBROMYLAGIIA REPORTED CAUSING GENERALIZED PAIN THAT IS CONTROLLLED WITH PRN MEDS.ON CLINICAL TRIAL FOR LIVER DISEASE,NON ALCOHOLIC(CARUSO) PER SPOUSE.ON RA W/O RESP DISTRESS.MED RECONCILLED ADN INSTRUCTED PT TO SEND HER OWN MEDS TO HOME.REVIWED POC AND UNIT PROTOCOLS,PT INAGREEMENT.ORIENTED TO .DR CABAN NOTIFIED,ORDERS GIVEN.POC IS TO CONT TO MONITOR.W
[2019-07-30 05:23] VITALS: BP 149/81
[2019-07-30 07:35] VITALS: BP 151/79
--- NOTE | 2019-07-30 08:20 | EKG ---
[facility] [place] [address] ELECTROCARDIOGRAM REPORT Name: ABEL KRUGER Room #: 203-P ADM IN M.R.#: [id number] Admission: 07/29/19 Attend Phys: Mello Powell MD Discharge: Date of : 49 Report #: [id number] THIS REPORT FOR: cc: Wilman Churchill MD, Christopher B. MD Couchonnal, Luis F. MD ~ THIS REPORT FOR: //name// [facility] ED Test Date: 2019-07-29 Test Time: 16:27:42 Pat Name: ABEL KRUGER Department: Room: [facility] Gender: F Hammerer: MARTÍNEZ : 1945 Requested By: Waylon Terrazas Order Number: [id number] MD: Musa Mcdonough Measurements Intervals [place] Rate: 72 P: 35 CT: 176 QRS: -20 QRSD: 71 T: 29 QT: 368 QTc: 403 Interpretive Statements Sinus rhythm Probable left atrial enlargement Abnormal R-wave progression, late transition Left ventricular hypertrophy Inferior infarct, old Compared to ECG 07/26/2019 19:50:51 Myocardial infarct finding now present Electronically Signed On 07-30-2019 8:19:27 JINRIKISHA DRIVER by Musa Mcdonough [email or web address] <ELECTRONICALLY SIGNED> By: Musa Mcdonough MD 07/30/19 0819 1627 162 Musa Mcdonough MD /EPI
--- NOTE | 2019-07-30 15:00 | NUR ---
met with patient who reports she resides at home with spouse. All needs on one level. patient uses a rolator walker at home. Her walker in room. Patient has ramp to home and handicapped equipt. home. patient appears anxious with needing cont testing regarding her syncope. casemgt following for dc planning.
[2019-07-30 15:50] VITALS: BP 164/76
--- NOTE | 2019-07-30 17:24 | NUR ---
PT CARE ASSUMED APPROX 0700. ASSESSMENT CHARTED. REPORTS ADEQUATE PAIN MANAGEMENT OF CHRONIC GENERALIZED PAIN. DENIES SOA. VSS. PT IS DIFFICULT TO PLEASE AND ANXIOUS THROUGHTOUT THE DAY. DR FIGUEROA AND ARSH ARE AWARE THAT PT IS ANXIOUS. PT HAS NEW ORDER FOR SLEEP AID. SHARDA PATEL PLANNED FOR AM. PT AWARE AND HAS SPOKEN TO DR ANDREW AND P/T AT LENGTH REGARDING QUESTIONS AND CONCERNS. AT BEDSIDE. PT AMBULATED IN HALLWAY WITH HIM. HE REPORTS UNDERSTANDING OF PT'S POC. NO DISTRESS NOTED.
[2019-07-30 20:50] VITALS: BP 136/65
--- NOTE | 2019-07-31 04:32 | NUR ---
PT RESTED WELL THROUGH THE NOC IN NO ACUTE DISTRESS.REMAINS A/OX4.VSS.SR/SB ON MONITOR.SBA WITH TOILETING.RA.PAIN MEDS GIVEN FOR GENERALIZED PAIN W/RELIEF.PT DENIES ANY NEEDS AT THIS TIME.WILL CONT TO MONITOR PER POC.
[2019-07-31 05:30] VITALS: BP 143/66
[2019-07-31 07:30] VITALS: BP 158/79
[2019-07-31 11:30] VITALS: BP 151/77
[2019-07-31 14:30] VITALS: BP 158/86
--- NOTE | 2019-07-31 18:39 | NUR ---
ASSESSMENT CHARTED. PT ALERT AND ORIENTED. VSS. RECEIVED PRN PAIN MED WITH PARTIAL RELIEF. SEEN BY DR. CABAN. NO NEW ORDERS. WILL CONTINUE TO MONITOR.
[2019-07-31 20:05] VITALS: BP 142/78
--- NOTE | 2019-08-01 04:15 | NUR ---
ASSESSMENT DOCUMENTED.PT BEEN RESTING IN NO ACUTE DISTRESS.A/OX4.VSS.DENIES CONCERNS.POC IS TO DISCHARGE TO HOME TODAY.WILL CONT TO MONITOR.
[2019-08-01 04:31] VITALS: BP 131/51
[2019-08-01 07:30] VITALS: BP 124/54
[2019-08-01 11:30] VITALS: BP 183/85
[2019-08-01 16:30] VITALS: BP 163/85
--- NOTE | 2019-08-01 18:11 | NUR ---
ASSUMED CARE 0700. ALERTX4, DENES SOB, DENIES CHEST PAIN, C/O OF NAUSEA THAT RESOLVED WITH ZOFRAN, BP ELEVATED DR MARCELINO FIGUEROA NOT DISCHARGING PT DUE TO HTN. AND PATIENT VOICED FULLNESS IN FACE. PT REQUIRES REVIEW AND ASSURANCE OF MEDICATIONS AND PLAN OF CARE. RECENT STROKE WITHOUT WEAKNESS. UP WITH WALKER STAND BY. CONTINENT OF BOWEL/BLADDER BM TODAY. CONTINUE TO MONITOR. CALL LIGHT IN REACH. BEDSIDE.
[2019-08-01 20:20] VITALS: BP 143/72
[2019-08-01 20:27] VITALS: BP 143/72
--- NOTE | 2019-08-02 03:33 | NUR ---
ASSESSMENT DOCUMENTED,PT BEEN RESTING IN NO ACUTE DISTRESS,SPOUSE AT BEDSIDE.UP WITH A WALKER TO BR.AMBULATES IN THE HALLWAYS WITH SPOUSE.TOLERATING W/O C/O DIZZINESS OR RESP DISTRESS.NAUSEA TREATED AT THE BEGINNING OF THE SHIFT WITH PRN MEDS,RESOLVED COMPLETELY.PAIN MEDS FOR GENERALIZED PAIN 2/2 FIBROMYLAGIA PER PT.SR ON MONITOR.SINUS JOSE ROBERTO WHILE SLEEPING.ANTICIPATING DISCHARGE TODAY TO HOME
[2019-08-02 03:35] VITALS: BP 150/75
[2019-08-02 07:38] VITALS: BP 163/85
--- NOTE | 2019-08-02 08:16 | NUR ---
ASSUMED CARE OF PT APPROX 0715, A&0X4, SPOUSE AT BEDSIDE. PT C/O OF FEELING LIKE SHE HAS THE BEGINNING OF UTI ALTHOUGH DENIES ANY PAIN WHILE URINATING, NOR SORENESS IN GENITALS YET DOES FEEL SOMETHING THAT FEELS LIKE MOVEMENT IN HER VAGINAL AREA THAT IS UNCOMFORTABLE. URINE CLEAR YELLOW. LAST BM YESTERDAY. NO DIZZINESS TODAY YET STILL HAS THAT HEAD FULLNESS SENSATION, THIS IS NEW, NOT CHRONIC. WALKS STEADY W/WALKER. USES WALKER AT HOME IF NEEDED. SPOUSE ALSO HELPS W/AMB JUST FOR SAFETY. IS NOT IMPULSIVE. SEE SEPARATE INTERVENTIONS FOR ASSESSMENTS. ENCOURAGED BOTH TO USE CALL LIGHT FOR ALL NEEDS
[2019-08-02 12:04] VITALS: BP 161/73
[2019-08-02 14:57] VITALS: BP 161/73
== END 2019-08-02 16:09 | disposition home or self-care (01) | DRG 312 ==
LOC: ER 15:25 → EROBS 17:33 → 2N 17:33 → EROBS 18:08 → 2N 18:40 → ENTRNSPT 08-02 15:25 → EDTRNSPTSTS 08-02 15:29 → 2N 08-02 16:09
PROVIDERS: Emergency Medicine; ADMIT Internal Medicine Geriatric Medicine
DX: R55 Syncope and collapse (principal); M79.7 Fibromyalgia; M19.90 Unspecified osteoarthritis, unspecified site; K58.9 Irritable bowel syndrome, unspecified; G62.9 Polyneuropathy, unspecified; R53.82 Chronic fatigue, unspecified; G25.81 Restless legs syndrome; G89.4 Chronic pain syndrome; F41.1 Generalized anxiety disorder; Z86.73 Personal history of transient ischemic attack (TIA), and cerebral infarction without residual deficits; Z79.899 Other long term (current) drug therapy; Z79.82 Long term (current) use of aspirin; Z79.84 Long term (current) use of oral hypoglycemic drugs; Z88.0 Allergy status to penicillin; Z88.1 Allergy status to other antibiotic agents; Z91.048 Other nonmedicinal substance allergy status
CPT/HCPCS: 10081

== ENCOUNTER 2021-06-22 19:35 | Emergency (ER) | payer OTHER ==
[~2021-06-22] VITALS: Ht 175.3 cm; Wt 93.0 kg
[2021-06-22 21:33] LABS: URINE BILIRUBIN NEGATIVE (Negative); URINE BLOOD NEGATIVE (Negative); URINE CLARITY CLEAR; URINE COLOR YELLOW; URINE GLUCOSE-RANDOM* NEGATIVE (Negative); URINE KETONES NEGATIVE (Negative); URINE PROTEIN (DIPSTICK) NEGATIVE (Negative); URINE UROBILINOGEN 0.2 E.U./dl (0.2-1.0)
[2021-06-22 21:33] LABS: ABSOLUTE NEUTROPHILS 5.1 thou/uL (1.4-8.2); BASOPHILS 0.9 % (0.0-2.0); HEMATOCRIT 41.6 % (37.0-47.0); LYMPHOCYTES 15.2 % (24.0-44.0); MCHC 33.7 g/dL (28.0-37.0); MCV 82.9 fL (80.0-100.0); MONOCYTES 8.7 % (1.0-8.0); PLATELET COUNT 146 thou/uL (150-400); POLYS 74.2 % (36.0-66.0); RBC 5.02 mil/uL (4.20-5.00); WBC 6.8 thou/uL (4.0-11.0)
[2021-06-22 21:42] LABS: URINE LEUKOCYTES-REFLEX 1+ (Negative); URINE NITRITE-REFLEX POSITIVE (Negative)
[2021-06-22 21:47] LABS: ANION GAP 10 mmol/L (7-16); BUN 12 mg/dL (7-18); CALCIUM 9.6 mg/dL (8.5-10.1); CHLORIDE 104 mmol/L (98-107); CO2 28 mmol/L (21-32); CREATININE 0.8 mg/dL (0.6-1.0); GLUCOSE 191 mg/dL (74-106); POTASSIUM 4.1 mmol/L (3.5-5.1); SODIUM 142 mmol/L (136-145)
[2021-06-22 21:57] LABS: ALBUMIN 3.8 g/dL (3.4-5.0); DIRECT BILIRUBIN < 0.1 mg/dL (<0.1-0.2); LIPASE 128 U/L (73-393); SGOT 16 U/L (15-37); SGPT 35 U/L (30-65); TOTAL BILIRUBIN 0.2 mg/dL (0.2-1.0); TOTAL PROTEIN 7.2 g/dL (6.4-8.2)
[2021-06-22 22:01] LABS: SQUAMOUS 0-3 Few /LPF (0-3); URINE WBC-REFLEX 0-5 Rare /HPF (0-5)
[2021-06-22 22:02] LABS: CASTS None Seen /LPF (None Seen); CRYSTALS None Seen /LPF (None Seen); MUCUS 0-3 Light strn/LPF (None Seen); URINE RBC 1-2 Rare /HPF (NONE SEEN)
[2021-06-23 02:39] VITALS: BP 127/61
--- NOTE | 2021-06-23 08:12 | EKG ---
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 : 1945 Requested By: Rakesh Alcala Order Number: [id number] MD: Kang Molina Measurements Intervals [place] Rate: 89 P: 25 KS: 177 QRS: -17 QRSD: 89 T: 21 QT: 351 QTc: 428 Interpretive Statements Sinus rhythm Ventricular premature complex Left ventricular hypertrophy Inferior infarct, old Anterior infarct, old Compared to ECG 07/29/2019 16:27:42 Ventricular premature complex(es) now present Electronically Signed On 06-23-2021 8:12:00 [employer]ARD SUPERVIS[employer] by Kang Molina [email or web address] <ELECTRONICALLY SIGNED> By: Kang Molina MD, [facility] 06/23/21811 21 21 Kang Molina MD, FACC /EPI
== END 2021-06-23 02:43 | disposition home or self-care (01) ==
LOC: ER 19:35
PROVIDERS: Student in an Organized Health Care Education/Training Program
DX: I10 Essential (primary) hypertension (principal); R07.89 Other chest pain; G25.81 Restless legs syndrome; Z90.89 Acquired absence of other organs; Z79.899 Other long term (current) drug therapy; Z87.891 Personal history of nicotine dependence; Z91.048 Other nonmedicinal substance allergy status; Z88.0 Allergy status to penicillin; Z88.8 Allergy status to other drugs, medicaments and biological substances